=== PATIENT | female | born 1990 | race Caucasian/White ===

== ENCOUNTER 2018-08-06 11:07 | Emergency (ER) | payer BC ==
[~2018-08-06] VITALS: Ht 167.6 cm; Wt 69.6 kg
[2018-08-06 11:12] VITALS: Ht 167.6 cm; Wt 69.6 kg
[2018-08-06] MEDS ORDERED: LIDOCAINE 1% (MPF) 5 ML VIAL INFIL ONE (12:30)
--- NOTE | 2018-08-06 13:34 | ERD ---
ER Documentation Chief Complaint Chief Complaint Complains of an abscess to the left side x 3 days HPI 28-year-old female, previously healthy, presents emergency department, complaining of skin abscess on the left axillar area during the last 3 days. The patient was seen by her primary doctor and prescribed cephalexin without improvement of the symptoms. ROS All systems reviewed and are negative except as per history of present illness. Medications Home Meds Active Scripts Ibuprofen* (Motrin*) 400 Mg Tab, 400 MG PO Q8, #15 TAB Prov:SHIRLEY NAZARIO MD 08/06/18 Cephalexin* (Keflex*) 500 Mg Capsule, 500 MG PO TID for 7 Days, CAP Prov:SHIRLEY NAZARIO MD 08/06/18 Allergies Allergies: Coded Allergies: No Known Allergy (Unverified , 08/06/18) PMhx/Soc Medical and Surgical Hx: pt denies Medical Hx, pt denies Surgical Hx Hx Alcohol Use: Yes (social) Hx Substance Use: No Hx Tobacco Use: No Smoking Status: Never smoker FmHx Family History: No diabetes, No coronary disease Physical Exam Vitals Vital Signs Date Temp Pulse Resp B/P (MAP) Pulse Ox O2 O2 Flow FiO2 Time Delivery Rate 08/06/18 98.2 71 20 130/70 100 11:12 (90) Physical Exam Const: No acute distress Head: Atraumatic Eyes: Normal Conjunctiva ENT: Normal External Ears, Nose and Mouth. Neck: Full range of motion. No meningismus. Resp: Clear to auscultation bilaterally Cardio: Regular rate and rhythm, no murmurs Abd: Soft, non tender, non distended. Normal bowel sounds Skin: 5 x 5 cm area of erythema, induration and fluctuance on the left axilla. Back: No midline or flank tenderness Ext: No cyanosis, or edema Neur: Awake and alert Psych: Normal Mood and Affect Results 24 hrs Current Medications Medications Dose Sig/Ca Start Time Status Last (Trade) Ordered Route PRN Stop Time Admin Dose Reason Admin Lidocaine 5 ml ONCE ONCE 08/06/18 DC (Xylocaine INFIL 12:30 08/06/18 1% (Mpf)) 12:31 Procedures/MDM Vital signs stable. Differential diagnosis considered include but not limited to: Cellulitis, abscess, lipoma, neoplasm. Low suspicion for acute systemic infection. Physical examination and clinical presentation consistent most likely with skin abscess. During the ED course the patient remained stable, no new complaints. The patient received treatment with incision and drainage of the area presenting overall improvement of the symptoms. Incision and drainage: Informed consent obtained, risk and benefits discussed with patient. Indication: skin abscess Location: left axilla Area cleaned and sterilized with chlorhexidine solution, 2 mL of lidocaine without epi was infiltrated in the area of the incision. 5 mm incision was made with 11 blade scalpel abscess was drained with breaking up loculation with a hemostat. 1/4 packing was placed through the incision in the abscess cavity. The patient tolerated well the procedure without complications. Results and clinical impression discussed with the patient who agrees with management. The patient is stable to be treated outpatient and will be discharged home, some side effects of prescribed medications (headache, rash, nausea, vomiting, diarrhea, drowsiness, habituation, bleeding, hypertension, interactions with other medications) were reviewed. The patient was instructed to follow up with the primary care provider in the next 48h. If symptoms persist, worsen or new symptoms develop, then patient should return to the ED immediately. Instructions explained and given directly by me to the patient with acknowledgment and demonstrated understanding. Disclaimer: Inadvertent spelling and grammatical errors are likely due to EHR/dictation software use and do not reflect on the overall quality of patient care. Also, please note that the electronic time recorded on this note does not necessarily reflect the actual time of the patient encounter. Departure Diagnosis: Primary Impression: Skin abscess Condition: Stable Patient Instructions: Abscess, Incision And Drainage Additional Instructions: Thank you very much for allowing us to participate in your care. Your health and safety is our top priority at [facility]. Call your primary care doctor TOMORROW for an appointment during the next 2-4 days and bring all the information and medications prescribed. Have prescriptions filled and follow precisely the directions on the label. If the symptoms get worse and your provider is unavailable, return to the Emergency Department immediately. SHIRLEY NAZARIO MD Aug 06, 2018 13:34
[2018-08-06] MEDS ORDERED: CEPH-443 PO (13:36)
[2018-08-06] MEDS ORDERED: IBUP-1561 PO (13:36)
== END 2018-08-06 14:02 | disposition home or self-care (01) ==
LOC: FTE 11:07
DX: L02.412 Cutaneous abscess of left axilla (principal)
CPT/HCPCS: 10060; Z7502; Z7610